=== PATIENT | male | born 1935 | race Caucasian/White ===

== ENCOUNTER 2017-11-27 12:18 | Emergency (ER) | payer MEDICARE, BC ==
[~2017-11-27] VITALS: Ht 180.3 cm; Wt 85.0 kg
[~2017-11-27 12:18] MED LIST: ASPI81 PO; CARD2TAB PO; CLOP75 PO; DIOV320T PO; HYDR12.56 PO; LIPI40TA PO
[2017-11-27 12:22] VITALS: BP 136/70; PULSE 109; RESP 14; TEMP 98.8; O2SAT 95
[2017-11-27] MEDS ORDERED: CARD2TAB PO (12:41)
[2017-11-27] MEDS ORDERED: ASPI-516 CHEW (12:41)
[2017-11-27] MEDS ORDERED: LIPI40TA PO (12:41)
[2017-11-27] MEDS ORDERED: DIOV320T PO (12:41)
--- NOTE | 2017-11-27 13:27 | PD ---
HPI Chief Complaint: Cold / Flu Symptoms Time Seen by Provider: 12:55 Travel History International Travel<30 days: Yes Contact w/Intl Traveler<30days: Yes Name of Country Traveled to: [facility] Traveled to known affect area: No History of Present Illness HPI This patient complains of cough and congestion and runny nose. Duration is one week. No shortness of breath or fever. Symptoms severity is mild PFSH Past Medical History Arthritis: Yes Blood Disorders: No Cancer: No Chemotherapy: No Endocrine: No Genitourinary: No Hypertension: Yes Neurologic: No Respiratory: No Radiation Therapy: No Tetanus Vaccination: < 5 Years Past Surgical History AICD: No Joint Replacement: Yes Pacemaker: No Other Surgery: Yes Social History Alcohol Use: No Tobacco Use: No Substance Use: No Allergies-Medications (Allergen,Severity, Reaction): Coded Allergies: Sulfa (Sulfonamide Antibiotics) (Unverified Allergy, Severe, Rash, 11/27/17) Reported Meds & Prescriptions Reported Meds & Active Scripts Active Reported Lipitor (Atorvastatin Calcium) 40 Mg Tab 40 Mg PO HS Aspirin 81 Mg Chew 81 Mg CHEW DAILY Cardura (Doxazosin Mesylate) 2 Mg Tab 2 Mg PO DAILY Diovan (Valsartan) 320 Mg Tab 320 Mg PO DAILY Review of Systems General / Constitutional: No: Fever Cardiovascular: No: Chest Pain or Discomfort Respiratory: Positive: Cough Physical Exam Narrative GENERAL: Well-nourished, well-developed patient in no apparent distress. SKIN: Focused skin assessment reveals no rash and nodules. Skin is Warm and dry. HEAD: Atraumatic. Normocephalic. EYES: Pupils equal and round. No scleral icterus. No injection or drainage. ENT: No nasal bleeding or discharge. Mucous membranes pink and moist. NECK: Trachea midline. No JVD. CARDIOVASCULAR: Regular rate and rhythm. No murmur appreciated. RESPIRATORY: No accessory muscle use. Clear to auscultation. Breath sounds equal bilaterally. GASTROINTESTINAL: Abdomen soft, non-tender, nondistended. Hepatic and splenic margins not palpable. MUSCULOSKELETAL: No obvious deformities. No clubbing. No cyanosis. No edema. NEUROLOGICAL: Awake and alert. No obvious cranial nerve deficits. Motor grossly within normal limits. Normal speech. PSYCHIATRIC: Appropriate mood and affect; insight and judgment normal. Data Data Last Documented VS Vital Signs Date Time Temp Pulse Resp B/P (MAP) Pulse Ox O2 Delivery O2 Flow Rate FiO2 11/27/17 12:22 98.8 109 14 136/70 (92) 95 MDM Medical Decision Making Medical Screen Exam Complete: Yes Emergency Medical Condition: Yes Medical Record Reviewed: Yes Differential Diagnosis Flu syndrome, bronchitis, pneumonia Narrative Course I have reviewed the patient's electronic medical record. He looks clinically well. His presentation is consistent with acute viral syndrome, Supportive care discussed No indication for antibiotics or extensive workup Diagnosis Primary Impression: Acute viral syndrome Additional Instructions: The patient was advised to follow up with their physician and return if they worsen. Med/Other Pt SpecificInfo: Other Disposition: 01 DISCHARGE HOME Condition: Stable Pravin Hernandez MD Nov 27, 2017 13:27
== END 2017-11-27 13:38 | disposition home or self-care (01) ==
LOC: NEPD 12:18
DX: B34.9 Viral infection, unspecified (principal); M19.90 Unspecified osteoarthritis, unspecified site; I10 Essential (primary) hypertension; Z79.82 Long term (current) use of aspirin; Z79.899 Other long term (current) drug therapy; Z88.2 Allergy status to sulfonamides
CPT/HCPCS: 99281